=== PATIENT | male | born 1995 | race American Indian/Alaskan Native ===

== ENCOUNTER 2025-04-28 16:49 | Emergency (ER) | payer OTHER ==
[~2025-04-28] VITALS: Ht 167.6 cm; Wt 154.6 kg
[2025-04-28 16:55] VITALS: TEMP 98.3
[2025-04-28] MEDS: CYCLOBENZAPRINE HCL 10 MG TABLET PO ONE (20:10)
[2025-04-28] MEDS: PERTUSS(ACELL),DIPH,TET/PF 0.5 ML SYRINGE [ADULT] IM. ONE (20:11)
[2025-04-28] MEDS: LIDOCAINE 1% 10 ML VIAL ID ONE (21:38)
[2025-04-28] MEDS: HYDROCODONE/ACETAMINOPHEN 10-325 MG TABLET PO ONE (21:38)
[2025-04-28] MEDS: BACITRACIN 0.9 GM PACKET OINTMENT TP ONE (21:38)
[2025-04-28] MEDS: AMOX TR/POT CLAV 875 MG/125 MG TABLET PO ONE (21:56)
[2025-04-28] MEDS ORDERED: HYDR-4062 PO (22:40)
[2025-04-28] MEDS ORDERED: IBUP-1492 PO (22:40)
[2025-04-28] MEDS ORDERED: AMOX-457 PO (22:40)
[2025-04-28] MEDS ORDERED: BACI28.410 TP (23:03)
[2025-04-28 23:31] VITALS: BP 129/78; PULSE 77; RESP 15; O2SAT 97
== END 2025-04-28 23:32 | disposition home or self-care (01) ==
LOC: EMS 16:49
DX: S02.2XXA Fracture of nasal bones, initial encounter for closed fracture (principal); S01.21XA Laceration without foreign body of nose, initial encounter; W19.XXXA Unspecified fall, initial encounter; Y93.89 Activity, other specified; Y92.89 Other specified places as the place of occurrence of the external cause; Y99.8 Other external cause status
CPT/HCPCS: 99284; 70160; 90715; 90471; 12011; J3490

== ENCOUNTER 2025-05-01 16:31 | Emergency (ER) | payer OTHER ==
[~2025-05-01] VITALS: Ht 167.6 cm; Wt 154.6 kg
[~2025-05-01 16:31] MED LIST: AMOX-457 PO; BACI28.410 TP; HYDR-4062 PO; IBUP-1492 PO
[2025-05-01 16:39] VITALS: BP 107/83; PULSE 69; RESP 18; TEMP 98.5; O2SAT 97
== END 2025-05-01 18:47 | disposition home or self-care (01) ==
LOC: EMS 16:31
DX: S93.402A Sprain of unspecified ligament of left ankle, initial encounter (principal); Z48.00 Encounter for change or removal of nonsurgical wound dressing; X58.XXXA Exposure to other specified factors, initial encounter; Y93.89 Activity, other specified; Y92.89 Other specified places as the place of occurrence of the external cause; Y99.8 Other external cause status
CPT/HCPCS: 99282; Z7502